=== PATIENT | female | born 1940 | race Caucasian/White ===

== ENCOUNTER 2016-11-10 16:21 | Emergency (ER) | payer SELFPAY ==
[~2016-11-10] VITALS: Ht 162.6 cm; Wt 65.0 kg
[2016-11-10 17:16] VITALS: Ht 162.6 cm; Wt 65.0 kg
[2016-11-10] MEDS ORDERED: METF500T4 PO (20:35)
[2016-11-10] MEDS ORDERED: ASPI325T4 PO (20:35)
[2016-11-10] MEDS ORDERED: ENAL2.5T PO (20:35)
--- NOTE | 2016-11-10 20:37 | ERD ---
ER Documentation Chief Complaint Date/Time DATE: 11/10/16 TIME: 20:30 Chief Complaint WOUND EVAL ON Pt BACK,TEARY EYE DRAINAGE,SORE THROAT, RUNNY NOSE NASAL CONGESTION FOR 4 DAYS HPI 76-year-old female presents to emergency department for multiple complaints. Patient has been having sore throat, runny nose, nasal congestion, dry cough for the last 4 days. Patient has been having watery eyes. Patient does not have any purulent discharge from the eyes. Patient has been having runny nose nasal congestion with clear nasal discharge. Patient is also complaining of sore throat, hoarseness of the voice, 4/10 scale, is worse upon swallowing. Patient had a long flight, was in her back for a long period of time, patient developed a pressure ulcer in the lower back area, wants to be checked. Patient does not have any pain on affected area, does not have any discharge, does not have any redness running the area. Patient is being taken care of by family which helped with translation and history and physical exam. ROS All systems reviewed and are negative except as per history of present illness. 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 HEENT: Atraumatic. Ears: Normal tympanic membrane, no erythema or bulging. No ear canal swelling. No ear discharge. Nose: Erythematous nasal turbinates with clear nasal discharge. Throat: oropharynx erythematous with postnasal drip. No lymphadenopathy. CHEST: Clear to auscultation bilaterally. There are no rales, wheezes or rhonchi. HEART: Regular rate and rhythm. No murmurs, clicks, rubs or gallops. No S3 or S4. ABDOMEN: Soft, nontender and nondistended. Good bowel sounds. No rebound or guarding. No gross peritonitis. No gross organomegaly or masses. No Gaona sign or McBurney point tenderness. BACK: No midline or flank tenderness. EXTREMITIES: Equal pulses bilaterally. There is no peripheral clubbing, cyanosis or edema. No focal swelling or erythema. Full range of motion. Grossly neurovascularly intact. NEURO: Alert and oriented. Cranial nerves 2-12 intact. Motor strength in all 3 extremities with 5/5 strength. Noted left BKA. Sensation grossly intact. Normal speech and gait. SKIN: 0.5 cm rash or ulcer wound in the coccyx area, no erythema surrounding the area, no discharge noted, nontender on palpation, no fluctuance noted. There is no apparent rash or petechia. The skin is warm and dry. HEMATOLOGIC AND LYMPHATIC: There is no evidence of excessive bruising or lymphedema. No gross cervical, axillary, or inguinal lymphadenopathy. Results 24 hrs PROCEDURE: XR Chest. CLINICAL INDICATION: Cough. TECHNIQUE: Single frontal chest x-ray. COMPARISON: None. FINDINGS: Heart is mildly enlarged. There are atherosclerotic calcifications of the aortic knob.. There is a mildly elevated left hemidiaphragm.. There is bibasilar atelectasis. There is no definite pneumonia. There is no CHF.. There is no pleural effusion. There is no pneumothorax. Right humeral head appears anterior inferiorly located relative to the poorly defined glenoid.. IMPRESSION: 1. Cardiomegaly. 2. Slightly elevated left hemidiaphragm. 3. Bibasilar atelectasis. 4. Possible anterior dislocation of the right humerus. Poorly defined glenoid. Recommend dedicated images of the right shoulder, if clinically indicated. RPTAT: [facility] .Gregg Martinez MD, MD Date Time Electronically viewed and signed by .Gregg Martinez MD, MD on 11/10/2016 22:06 .K/ CC: MIO CADET NP Upon receiving patient's chest x-ray report, the right shoulder was evaluated, patient is able to do full range of motion of the right shoulder without any pain without any restriction. Patient was evaluated by my attending physician, Dr. Gomez, patient is able to do full range of motion of the right shoulder , does not have any right shoulder pain, able to flex and extend right shoulder joint to 90, patient is able to flex the joint of the right shoulder unable to place right hand to the left shoulder area without any difficulty, as per discussion with Dr. Gomez, radiology exams for the shoulder is not indicated at this time, slightly patient does not have any dislocation. Most likely chest x-ray report shows possible chronic subluxation or possibly positional. Procedures/MDM Medical Decision Making: Patient symptoms are most likely consistent with upper respiratory tract infection, which viral in origin. There is low suspicion for Pneumonia at this time since patients lungs sounds are clear, patient O2 saturation is normal and patient doesnt show any respiratory distress. Patients chest xray doesnt show infiltrates or any other cardiopulmonary emergencies at this time. There is low suspicion for other cardiopulmonary emergencies at this time such as CHF, Pulmonary Embolism, Pneumothorax, Aortic Aneurysm or any other cardiopulmonary emergencies at this time. There is low suspicion for sepsis. Patient appears well and is hemodynamically stable. Fever is controlled with medicines. She does have pressure ulcer in the coccyx area, not infected at this time, no symptoms of any abscesses, though patient will be given Keflex to prevent infection of affected area since patient is diabetic and high risk. Patient was advised to have this rechecked in 2 days primary care doctor. Disposition: Home. Condition: Stable Prescriptions: Keflex, Tylenol, guaifenesin DM, Instructions: Patient is advised to take medications as prescribed. Patient is advised to rest. Patient advised to increase fluid intake, do humidifier at home and if possible, do salt water gargles. Patient is advised that if symptoms are worse, shortness of breath, uncontrolled fever, stridor, vomiting, worst signs and symptoms to return to emergency department immediately. Otherwise, patient is advised to follow up with primary doctor 2 days for wound check. Reposition patient is very 3 hours to avoid pressure ulcer worsening. Departure Diagnosis: Primary Impression: URI (upper respiratory infection) URI type: unspecified viral URI Qualified Code: J06.9 - Viral upper respiratory tract infection Additional Impression: Skin ulcer Non-pressure ulcer stage: unspecified non-pressure ulcer stage Qualified Code : L98.499 - Skin ulcer, with unspecified severity Condition: Stable Patient Instructions: Uri, Viral, No Abx (Adult), Wound Care Additional Instructions: Patient is advised to take medications as prescribed. Patient is advised to rest. Patient advised to increase fluid intake, do humidifier at home and if possible, do salt water gargles. Patient is advised that if symptoms are worse, shortness of breath, uncontrolled fever, stridor, vomiting, worst signs and symptoms to return to emergency department immediately. Otherwise, patient is advised to follow up with primary doctor 2 days for wound check. Reposition patient is very 3 hours to avoid pressure ulcer worsening. MIO CADET NP Nov 10, 2016 20:37
--- NOTE | 2016-11-10 22:06 | RADRPT ---
PROCEDURE: XR Chest. CLINICAL INDICATION: Cough. TECHNIQUE: Single frontal chest x-ray. COMPARISON: None. FINDINGS: Heart is mildly enlarged. There are atherosclerotic calcifications of the aortic knob.. There is a mildly elevated left hemidiaphragm.. There is bibasilar atelectasis. There is no definite pneumonia . There is no CHF.. There is no pleural effusion. There is no pneumothorax. Right humeral head a ppears anterior inferiorly located relative to the poorly defined glenoid.. IMPRESSION: 1. Cardiomegaly. 2. Slightly elevated left hemidiaphragm. 3. Bibasilar atelectasis. 4. Possible anterior dislocation of the right humerus. Poorly defined glenoid. Recommend dedicate d images of the right shoulder, if clinically indicated. RPTAT: [facility] .Gregg Martinez MD, Date Time Electronically viewed and signed by .Gregg Martinez MD, on 11/10/2016 22:06 .K/
[2016-11-10] MEDS ORDERED: ACET500C5 PO (22:59)
[2016-11-10] MEDS ORDERED: CETI10CA PO (22:59)
[2016-11-10] MEDS ORDERED: CEPH-443 PO (22:59)
[2016-11-10] MEDS ORDERED: GUAI120S26 PO (22:59)
[2016-11-10 23:14] VITALS: BP 159/69; PULSE 104; RESP 18; TEMP 98.7
== END 2016-11-10 23:14 | disposition home or self-care (01) ==
LOC: FTE 16:21
DX: J06.9 Acute upper respiratory infection, unspecified (principal); I10 Essential (primary) hypertension; E11.9 Type 2 diabetes mellitus without complications; L98.499 Non-pressure chronic ulcer of skin of other sites with unspecified severity; Z79.82 Long term (current) use of aspirin; Z79.84 Long term (current) use of oral hypoglycemic drugs
CPT/HCPCS: 71010

== ENCOUNTER 2017-10-11 22:18 | Inpatient (IN) | END 2017-10-14 14:16 | DRG 871 ==